=== PATIENT | male | born 1960 | race African-American/Black ===

== ENCOUNTER 2022-09-09 16:15 | Emergency (ER) | payer OTHER ==
[~2022-09-09] VITALS: Ht 162.6 cm; Wt 91.0 kg
[2022-09-09 16:27] VITALS: BP 179/106; PULSE 84; RESP 18; TEMP 98.3; O2SAT 96
[2022-09-09] MEDS ORDERED: LIDOCAINE HCL/PF 1% 10 MG/ML 5ML VIAL INFIL ONE (16:30)
[2022-09-09] MEDS ORDERED: TETANUS, DIPHTHERIA, PERTUSSIS VAC/PF 0.5ML (>10YR OLD) IM ONE (16:30)
== END 2022-09-09 19:02 | disposition home or self-care (01) ==
LOC: ER 16:31
DX: S01.112A Laceration without foreign body of left eyelid and periocular area, initial encounter (principal); S01.111A Laceration without foreign body of right eyelid and periocular area, initial encounter; X58.XXXA Exposure to other specified factors, initial encounter; Y93.89 Activity, other specified; Y92.89 Other specified places as the place of occurrence of the external cause; Y99.8 Other external cause status
CPT/HCPCS: 70486; 90471; 90715; 99285

== ENCOUNTER 2022-09-16 13:08 | Emergency (ER) | payer OTHER ==
[~2022-09-16] VITALS: Ht 162.6 cm; Wt 86.2 kg
[2022-09-16 13:13] VITALS: PULSE 100
[2022-09-16 13:15] VITALS: BP 203/89; RESP 16; TEMP 98.5; O2SAT 100
== END 2022-09-16 13:34 | disposition home or self-care (01) ==
LOC: ER 13:08
DX: Z48.02 Encounter for removal of sutures (principal)
CPT/HCPCS: 99281